=== PATIENT | male | born 1990 | race Caucasian/White ===

== ENCOUNTER 2016-09-28 09:45 | Emergency (ER) | payer SELFPAY ==
[~2016-09-28] VITALS: Ht 172.7 cm; Wt 85.0 kg
--- NOTE | 2016-09-28 10:05 | PD ---
HPI Chief Complaint: auditory hallucinations Time Seen by Provider: 10:05 Travel History International Travel<30 days: No Contact w/Intl Traveler<30days: No Traveled to known affect area: No History of Present Illness HPI 26-year-old male with history of schizophrenia was brought to the emergency room by the commercial loan analyst under Huston's act. Patient however is not intoxicated. [place] life cart that he was hearing voices and was out of his psych medications. Patient is from [place] and is here in a carnival. Vital signs are stable. He denies doing any drugs or alcohol. 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 He has run out of his psych medications for past 3 days and since then he has been hearing voices. However patient says he has been seeing shadows for past 7 days and these are driving him crazy. It is to the extent where he thinks he will harm himself by slitting his throat. Patient says he did not say these things to the commercial loan analyst because he didn't want to get arrested. Patient has been hospitalized for psych in the past. [facility] Past Medical History Narrative Medical List of his past medical, surgical, social and family history is reviewed from the nurse's note. Social History Tobacco Use: Yes Allergies-Medications (Allergen,Severity, Reaction): Coded Allergies: Wellbutrin (Verified Allergy, Unknown, 09/28/16) Per pt. Comments Awaiting for the nurse to put the allergies. Reported Meds & Prescriptions Reported Meds & Active Scripts Active Reported Vistaril (Hydroxyzine Pamoate) 25 Mg Cap 5-10 Mg PO Q6HR PRN Haloperidol 10 Mg Tab 10 Mg PO BID Seroquel (Quetiapine Fumarate) 300 Mg Tab 300 Mg PO BID Narrative Medication Awaiting for the nurse to do med reconciliation. Review of Systems Except as stated in HPI: all other systems reviewed are Neg Physical Exam Narrative GENERAL: Awake, alert, no obvious distress SKIN: Focused skin assessment warm/dry. HEAD: Atraumatic. Normocephalic. EYES: Pupils equal and round. No scleral icterus. No injection or drainage. ENT: No nasal bleeding or discharge. Mucous membranes pink and moist. NECK: Trachea midline. No JVD. CARDIOVASCULAR: Regular rate and rhythm. No murmur appreciated. RESPIRATORY: No accessory muscle use. Clear to auscultation. Breath sounds equal bilaterally. GASTROINTESTINAL: Abdomen soft, non-tender, nondistended. Hepatic and splenic margins not palpable. MUSCULOSKELETAL: No obvious deformities. No clubbing. No cyanosis. No edema. NEUROLOGICAL: Awake and alert. No obvious cranial nerve deficits. Motor grossly within normal limits. Normal speech. PSYCHIATRIC: Appropriate mood and affect; insight and judgment normal. Data Data Last Documented VS Vital Signs Date Time Temp Pulse Resp B/P Pulse Ox O2 Delivery O2 Flow Rate FiO2 09/29/16 18:00 98.1 63 16 107/51 Room Air 09/29/16 02:26 96 Orders Complete Blood Count With Diff (09/28/16 10:10) Comprehensive Metabolic Panel (09/28/16 10:10) Psych Screen (09/28/16 10:10) Drug Screen, Random Urine (09/28/16 10:10) Diet Regular Basic (09/28/16 Dinner) Diet Regular Basic (09/29/16 Breakfast) Diet Regular Basic (09/29/16 Dinner) Diet Regular Basic (09/29/16 Lunch) Haloperidol (Haldol) (09/29/16 11:00) Labs Laboratory Tests Test 09/28/16 10:49 White Blood Count 9.7 TH/MM3 Red Blood Count 4.50 MIL/MM3 Hemoglobin 13.3 GM/DL Hematocrit 40.1 % Mean Corpuscular Volume 89.2 FL Mean Corpuscular Hemoglobin 29.7 PG Mean Corpuscular Hemoglobin 33.3 % Concent Red Cell Distribution Width 13.9 % Platelet Count 216 TH/MM3 Mean Platelet Volume 7.4 FL Neutrophils (%) (Auto) 78.3 % Lymphocytes (%) (Auto) 12.9 % Monocytes (%) (Auto) 7.7 % Eosinophils (%) (Auto) 0.8 % Basophils (%) (Auto) 0.3 % Neutrophils # (Auto) 7.6 TH/MM3 Lymphocytes # (Auto) 1.3 TH/MM3 Monocytes # (Auto) 0.7 TH/MM3 Eosinophils # (Auto) 0.1 TH/MM3 Basophils # (Auto) 0.0 TH/MM3 CBC Comment DIFF FINAL Differential Comment Sodium Level 140 MEQ/L Potassium Level 3.8 MEQ/L Chloride Level 104 MEQ/L Carbon Dioxide Level 33.0 MEQ/L Anion Gap 3 MEQ/L Blood Urea Nitrogen 13 MG/DL Creatinine 0.82 MG/DL Estimat Glomerular Filtration 114 ML/MIN Rate Random Glucose 87 MG/DL Calcium Level 9.0 MG/DL Total Bilirubin 0.2 MG/DL Aspartate Amino Transf 88 U/L (AST/SGOT) Alanine Aminotransferase 212 U/L (ALT/SGPT) Alkaline Phosphatase 85 U/L Total Protein 7.2 GM/DL Albumin 3.7 GM/DL Urine Opiates Screen NEG Urine Barbiturates Screen NEG Urine Amphetamines Screen NEG Urine Benzodiazepines Screen NEG Urine Cocaine Screen NEG Urine Cannabinoids Screen NEG MDM Medical Decision Making Medical Screen Exam Complete: Yes Emergency Medical Condition: Yes Medical Record Reviewed: Yes Differential Diagnosis Artery hallucinations, suicidal ideations, psychosis, schizophrenia Narrative Course 11:15 AM awaiting for the lab test results to medically clear the patient. I did fill a Mcghee's act paperwork since given his suicidal ideations I was obligated to. Once patient is medically cleared he will require psych screening. 11:30 AM blood test results of back and patient does have mildly elevated liver enzymes. Rest of the blood test results are within acceptable limit. I will let him know that when he goes back to [place] to see his primary care he should get this rechecked. Procedures EKG Prior to Arrival: No Diagnosis Primary Impression: Elevated liver function tests Additional Impressions: Auditory hallucinations Suicidal ideations Additional Instructions: Please make sure that when you see your primary care doctor you have a repeat blood test checking for liver function since that was mildly elevated in the emergency room today. He should not be drinking alcohol as that will make her condition worse. Gladys Amaral MD Sep 28, 2016 10:05
[2016-09-28 10:58] VITALS: BP 121/62; PULSE 81; RESP 15; TEMP 98.4; O2SAT 98
[2016-09-28 11:00] LABS: AUTOMATED NEUTROPHIL # 7.6 TH/MM3 (1.8-7.7); BASOPHIL % 0.3 % (0.0-2.0); EOSINOPHIL # 0.1 TH/MM3 (0-0.4); EOSINOPHIL % 0.8 % (0.0-4.0); HEMATOCRIT 40.1 % (39.0-51.0); HEMO FLAGS DIFF FINAL; LYMPH % 12.9 % (9.0-44.0); LYMPHOCYTE # 1.3 TH/MM3 (1.0-4.8); MEAN CELL VOLUME 89.2 FL (80.0-100.0); MEAN CORPUSCULAR HEMOGLOBIN 29.7 PG (27.0-34.0); MEAN CORPUSCULAR HGB CONC 33.3 % (32.0-36.0); MONO % 7.7 % (0.0-8.0); NEUT % 78.3 % (16.0-70.0); PLATELET COUNT 216 TH/MM3 (150-450); RED CELL DISTRIBUTION WIDTH 13.9 % (11.6-17.2); WHITE BLOOD COUNT 9.7 TH/MM3 (4.0-11.0)
[2016-09-28 11:15] LABS: AMPHETAMINE, URINE NEG (NEG); BARBITURATES, URINE NEG (NEG); COCAINE, URINE NEG (NEG)
[2016-09-28 11:23] LABS: ALT (GPT) 212 U/L (12-78); ANION GAP 3 MEQ/L (5-15); AST (GOT) 88 U/L (15-37); BLOOD UREA NITROGEN 13 MG/DL (7-18); CHLORIDE 104 MEQ/L (98-107); GLOMERULAR FILTRATION RATE 114 ML/MIN (>89); POTASSIUM 3.8 MEQ/L (3.5-5.1); SODIUM (NA) 140 MEQ/L (136-145)
[2016-09-28 11:24] LABS: ALKALINE PHOSPHATASE 85 U/L (45-117); TOTAL BILIRUBIN ADULT 0.2 MG/DL (0.2-1.0)
[2016-09-28 13:27] VITALS: BP 121/69; PULSE 81; RESP 18; TEMP 98.3; O2SAT 97
[2016-09-28] MEDS ORDERED: SERO300T PO (16:39)
[2016-09-28] MEDS ORDERED: HALO10TA PO (16:40)
[2016-09-28] MEDS ORDERED: VIST25CA PO (16:41)
[2016-09-28 17:30] VITALS: BP 109/54; PULSE 77; RESP 18
[2016-09-28 22:00] VITALS: BP 124/59; PULSE 69; RESP 16
[2016-09-29 02:26] VITALS: BP 103/56; PULSE 71; RESP 18; O2SAT 96
[2016-09-29 10:14] VITALS: BP 130/72; PULSE 82; RESP 18
[2016-09-29] MEDS ORDERED: HALOPERIDOL 10 MG TAB PO ONE (11:00)
[2016-09-29 14:00] VITALS: BP 109/65; PULSE 79; RESP 18; TEMP 98.3
[2016-09-29 18:00] VITALS: BP 107/51; PULSE 63; RESP 16; TEMP 98.1
[2016-09-29] MEDS: HALOPERIDOL 10 MG TAB PO SCH (20:31)
[2016-09-29 23:13] VITALS: BP 112/58; PULSE 60; RESP 18
[2016-09-30 01:49] VITALS: BP 100/51; PULSE 58; RESP 18
[2016-09-30 06:04] VITALS: BP 116/54; PULSE 63; RESP 18
[2016-09-30] MEDS: HALOPERIDOL 10 MG TAB PO SCH (09:00)
[2016-09-30 11:14] VITALS: BP 109/58; PULSE 67; RESP 18; TEMP 96
--- NOTE | 2016-09-30 11:37 | PD ---
History of Present Illness Chief Complaint: Psychiatric Symptoms Time Seen by Provider: 11:30 Travel History International Travel<30 Days: No Contact w/Intl Traveler<30days: No Known affected area: No Legal Status Legal Status: [employer] Act Mcghee Act Signed By: Gladys Mcghee Act Comment: Auditory and Visual hallucinations, suicidal ideations History of Present Illness: 26-year-old male with a history of likely schizophrenia, Litzy acted by main ED physician for complaints of hearing voices. Patient has been at this institution for approximately 2 days and has been calm and cooperative and compliant since he has been in [facility]. He has been placed back on his Haldol and is feeling better. He would like prescriptions for Haldol and Seroquel so that he may go home to his father's home. He also has psychiatric follow up in the next several days. He denies any suicidal or homicidal ideation, plan or intent. He admits to intermittent auditory hallucinations but states he can tolerate these now that he is back on his medicines and that they have subsided in intensity and frequency. His cognition is intact and he is verbally juan carlos for safety. PFSH Past Medical History Medical History: Denies Significant Hx Diminished Hearing: No Myocardial Infarction: Yes (3 COCAINE INDUCED ID'S) Tetanus Vaccination: Unknown Influenza Vaccination: No Psychiatric History Psychiatric History Hx Psychiatric Treatment: Pt. will not give information. Patient is now speaking freely to this physician and providing all information. He takes Haldol 10 mg twice a day and he takes Seroquel 300 mg twice a day. History of Inpatient Treatment: Yes Guns or firearms in home: No Social History Hx Alcohol Use: No ([facility] 5 YRS) Hx Tobacco Use: Yes Hx Substance Use: No Hx of Substance Use Treatment: No Allergies-Medications (Allergen,Severity, Reaction): Coded Allergies: Wellbutrin (Verified Allergy, Unknown, 09/28/16) Per pt. Reported Meds & Prescriptions Reported Meds & Active Scripts Active Reported Vistaril (Hydroxyzine Pamoate) 25 Mg Cap 5-10 Mg PO Q6HR PRN Haloperidol 10 Mg Tab 10 Mg PO BID Seroquel (Quetiapine Fumarate) 300 Mg Tab 300 Mg PO BID Review of Systems Except as stated in HPI: all other systems reviewed are Neg Exam Alert: Yes [place]: Person, Place, Date, Situation Mood: Calm Affect: Appropriate, Euthymic Speech: Clear, Logical Eye Contact: Normal Memory Intact: Immediate, Recent, Remote Hallucinations: Auditory Delusions: No Insight/Judgement Adequate MDM Medical Decision Making Medical Record Reviewed: Yes Assessment/Plan Patient's Mcghee act is being lifted and he is being given prescriptions for his medications. He will go home to his father and follow up with his psychiatrist in several days. In this physician's opinion, the patient does not meet Mcghee act criteria or inpatient psychiatric hospitalization criteria at this time. Again, he has been calm, compliant and cooperative showing good insight and good judgment for his time here in [facility]. Orders Haloperidol (Haldol) (09/29/16 21:00) Diet Regular Basic (09/30/16 Breakfast) Diet Regular Basic (09/30/16 Lunch) Results Vital Signs Date Time Temp Pulse Resp B/P Pulse Ox O2 Delivery O2 Flow Rate FiO2 09/30/16 11:14 96.0 67 18 109/58 Room Air 09/30/16 06:04 63 18 116/54 09/30/16 01:49 58 18 100/51 09/29/16 23:13 60 18 112/58 Room Air 09/29/16 18:00 98.1 63 16 107/51 Room Air 09/29/16 14:00 98.3 79 18 109/65 Room Air Diagnosis Primary Impression: Schizophrenia, paranoid, chronic Additional Instructions: Please make sure that when you see your primary care doctor you have a repeat blood test checking for liver function since that was mildly elevated in the emergency room today. He should not be drinking alcohol as that will make her condition worse. Chau Jones MD Sep 30, 2016 11:37
[2016-09-30] MEDS ORDERED: HALO10TA PO ×2 (11:41)
[2016-09-30] MEDS ORDERED: SERO300T PO ×2 (11:41)
== END 2016-09-30 12:54 | disposition home or self-care (01) ==
LOC: NEPD 09:45 → NEPJ 09-30 12:54
DX: F20.0 Paranoid schizophrenia (principal); R79.89 Other specified abnormal findings of blood chemistry; R44.0 Auditory hallucinations; R45.851 Suicidal ideations
CPT/HCPCS: 80053; 80307; 85025; 99284